=== PATIENT | female | born 1965 | race Caucasian/White ===

== ENCOUNTER 2019-10-10 10:44 | Emergency (ER) | payer OTHER ==
--- OUTSIDE RECORDS SUMMARY | 2019-10-10 10:51 | XMS REPORT | Continuity of Care Document ---
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, face and Anna Givens MD Onset: 05/2020 neck Psoriasis Anna Givens MD Onset: 09/15/2019 Immunologic Anna Givens MD Onset: 09/15/2019 Other synovitis and tenosynovitis, left ankle and Sebastián Navarro MD Onset: foot Tailor's bunion Sebastián Navarro MD Onset: 04/11/2019 Onychomycosis of toenails Onset: 06/23/2019 Hypothyroidism Onset: 08/06/1989 H/O: hysterectomy Onset: 08/06/2008 Stress fracture of metatarsal bone Onset: 03/14/2019 Menopausal syndrome Onset: 04/22/2019 Exercise-induced asthma Onset: 04/22/2019 Raynaud's phenomenon Onset: 06/23/2019 Social History Type Date Description Comments Sex Unknown Tobacco Use Start: Unknown End: Former Cigarette Smoker Unknown Smoking Status Reviewed: 09/18/19 Former Cigarette Smoker ETOH Use Occasionally consumes alcohol ETOH Use Drinks 2 Alcoholic Beverages Per Week Tobacco Use Start: Unknown Patient has never smoked Exercise Type/Frequency Exercises regularly Crossfit Allergies, Adverse Reactions, Alerts Description No Known Drug Allergies Medications Active Medications SIG Qnty Indications Ordering Date Provider Prednisone Take three tabs 60tabs M06.4 Ezequiel 09/18/2019 5mg Tablets by mouth daily MD Germain for three days, two tabs by mouth daily for two ,weeks one tab by mouth daily for two weeks. Hydroxychloroquine take one tab by 180tabs M06.4 Ezequiel 09/18/2019 Sulfate mouth daily for MD Germain 200mg Tablets one week, then increase to one tab twice daily thereafter Nifedipine 5%, apply 0.5 to 1 90ml I73.00 Anna Givens, 09/15/2019 Pentoxifylline 5% In ml to hands q 8 Cream hours Estradiol Take One Tablet Unknown 1mg Tablets By Mouth Every Day Levothyroxine Sodium 1 by mouth every Unknown 125mcg day Tablets Jublia apply once daily Unknown 10% Solution to toe nails Claritin 1 by mouth every Unknown 10mg Capsules day prn Medications Administered in Office Medication SIG Qnty Indications Ordering Provider Date Triamcinolone (Kenalog) Sebastián Navarro MD 04/11/2019 Injection Immunizations CPT Code Status Date Vaccine Lot # [id number] Given 05/29/2017 Influenza Virus Vaccine, Quadrivalent, Split, Im Use 6-35mo 07725 Given 08/31/2016 Influenza Virus Vaccine, Quadrivalent, Split, Im Use 6-35mo 18807 Given 08/26/2014 Tdap - Tetanus/Diptheria/Acellular Pertussis Vital Signs Date Vital Result Comment 09/18/2019 4:03pm Height 68.75 inches 5'8.75" Weight 177.38 lb Heart Rate 54 /min BP Systolic 113 mmHg BP Diastolic 68 mmHg Body Temperature 96.9 F O2 % BldC Oximetry 98 % BMI (Body Mass Index) 26.4 kg/m2 09/15/2019 3:31pm Height 68.75 inches 5'8.75" Weight 175.12 lb Heart Rate 59 /min BP Systolic 117 mmHg BP Diastolic 70 mmHg Body Temperature 97.6 F O2 % BldC Oximetry 100 % BMI (Body Mass Index) 26.0 kg/m2 Results Test Acquired Date Facility Test Result H/L Range Note CBC Auto 08/27/2019 [facility] White Blood 6.1 10^3/uL Normal 3.5-10.[address] [place] [address] [phone] Red Blood Count 3.89 10^6/uL Normal 3.70-4.87 Hemoglobin 12.2 g/dL Normal 12.0-16.0 Hematocrit 36 % Normal 35-47 Mean Corpuscular Volume 91 fL Normal 80-97 Mean Corpuscular Hemoglobin 31 pg Normal 27-31 Mean Corpuscular HGB Conc 34 g/dL Normal 31-36 Red Cell Distribution Width 13 % Normal 10-15 Platelet Count 229 10^3/uL Normal 150-450 Mean Platelet Volume 9.3 fL Normal 7.4-10.4 Abs Neutrophils 2.8 10^3/uL Normal 1.5-7.7 Abs Lymphocytes 2.4 10^3/uL Normal 1.0-4.8 Abs Monocytes 0.7 10^3/uL Normal 0-0.8 Abs Eosinophils 0.1 10^3/uL Normal 0-0.6 Abs Basophils 0.0 10^3/uL Normal 0-0.2 Abs Nucleated RBC 0.0 10^3/uL Granulocyte % 46.7 % Lymphocyte % 40.1 % Monocyte % 11.7 % Eosinophil % 0.8 % Basophil % 0.7 % Nucleated Red Blood Cells % 0.0 Urine Culture And 08/12/2019 [facility] Urine Culture SEE RESULT [address] [place] [address] [phone] Ssa/SSB Abs Igg 08/12/2019 [facility] SS-A/Ro <0.2 U [address] [place] [address] [phone] SS-B/La Antibody <0.2 U 3 Maryanne Igg AB Reflex 08/12/2019 [facility] SS-A/Ro Antibody <0.2 U [address] [place] [address] [phone] SS-B/La Antibody <0.2 U 5 Sm (Cavazos) IgG Antibody 0.4 U 6 LUNCHROOM ATTENDANT Antibody, IgG 3.8 U Abnormal 7 Scl-70 (Scleroderma) Antibody <0.2 U 8 Khushboo-1 Antibody <0.2 U 9 Laboratory test 08/12/2019 [facility] Rheumatoid < 10 IU/mL Normal <[address] [place] [address] [phone] Lupus 08/12/2019 [facility] Lupus See [address] [place] [address] Tech Inter [phone] Prothrombin Time(Lac) 11.0 sec 9.4 - 12.5 Lac Inr 1.0 0.9-1.1 11 Lac Aptt 24 sec Abnormal 25 - 37 DRVVT Screen Ratio 0.88 ratio <1.20 12 Laboratory 08/12/2019 [facility] Hepatitis B Nonreactive Nonreactive test finding 101 [facility] [place] [place] [address] [phone] Urinalysis 08/12/2019 [facility] Urine Color Yellow Profile [facility] [place] [address] [phone] Urine Appearance Cloudy Urine Specific Zeigler 1.008 Low 1.010-1.030 Urine pH 6.0 Normal 5-9 Urine Urobilinogen Negative Negative Urine Ketones Negative Negative Urine Protein Negative Negative Urine Leukocytes Negative Negative Urine Blood 1+ Abnormal Negative Urine Nitrite Negative Negative Urine Bilirubin Negative Negative Urine Glucose Negative Negative Urine White Blood Cell Trace(0-5/hpf) Absent Urine Red Blood Cell Trace(0-2/hpf) Absent Urine Bacteria 2+ Abnormal Absent Urine Squamous Epithelial Cell Present Abnormal Absent Laboratory test 08/12/2019 [facility] Complement C1Q 23 mg/dL Abnormal 12 - 13 finding [facility] [address] [place] [address] [phone] Complement C3 105 mg/dL 75 - 175 14 Complement C4 17 mg/dL 14 - 40 15 Cyclic Citrullinated Pep Igg <15.6 U 16 Direct Poonam NEGATIVE Rna Polymerase III Igg <10.0 U 17 Erythrocyte Sed Rate 29 mm/Hr Normal 0-29 Cardiolipin 08/12/2019 [facility] Phospholipid Ab 11.9 MPL 18 Igg/Igm [facility] IgM, [place] [address] [phone] Phospholipid Ab IgG < 9.4 GPL 19 Laboratory test 08/12/2019 [facility] C Reactive 24.26 mg/L High <8.01 finding 101 [facility] [place] [address] [phone] Creatine Kinase(CK) 29 U/L Normal 10-223 Comp Metabolic 08/12/2019 [facility] Sodium 138 mmol/L Normal 135-[address] [place] [address] [phone] Potassium 3.5 mmol/L Normal 3.5-5.0 Chloride 103 mmol/L Normal 101-111 Co2 Carbon Dioxide 28 mmol/L Normal 22-32 Anion Gap 7 mmol/L Normal 2-11 Glucose 93 mg/dL Normal 70-100 Blood Urea Nitrogen 9 mg/dL Normal 6-24 Creatinine 0.73 mg/dL Normal 0.51-0.95 BUN/Creatinine Ratio 12.3 Normal 8-20 Calcium 9.2 mg/dL Normal 8.6-10.3 Total Protein 6.7 g/dL Normal 6.4-8.9 Albumin 4.2 g/dL Normal 3.2-5.2 Globulin 2.5 g/dL Normal 2-4 Albumin/Globulin Ratio 1.7 Normal 1-3 Total Bilirubin 0.50 mg/dL Normal 0.2-1.0 Alkaline Phosphatase 60 U/L Normal 34-104 Alt 16 U/L Normal 7-52 Ast 17 U/L Normal 13-39 Egfr Non- 82.8 >60 Egfr 100.2 >60 20 CBC Auto 08/12/2019 [facility] White Blood 7.2 10^3/uL Normal 3.5-10.[address] Count [place], [place] [address] [phone] Red Blood Count 3.84 10^6/uL Normal 3.70-4.87 Hemoglobin 12.0 g/dL Normal 12.0-16.0 Hematocrit 35 % Normal 35-47 Mean Corpuscular Volume 91 fL Normal 80-97 Mean Corpuscular Hemoglobin 31 pg Normal 27-31 Mean Corpuscular HGB Conc 34 g/dL Normal 31-36 Red Cell Distribution Width 14 % Normal 10-15 Platelet Count 213 10^3/uL Normal 150-450 Mean Platelet Volume 9.8 fL Normal 7.4-10.4 Abs Neutrophils 5.2 10^3/uL Normal 1.5-7.7 Abs Lymphocytes 1.4 10^3/uL Normal 1.0-4.8 Abs Monocytes 0.6 10^3/uL Normal 0-0.8 Abs Eosinophils 0.0 10^3/uL Normal 0-0.6 Abs Basophils 0.0 10^3/uL Normal 0-0.2 Abs Nucleated RBC 0.0 10^3/uL Granulocyte % 71.8 % Lymphocyte % 19.0 % Monocyte % 8.1 % Eosinophil % 0.5 % Basophil % 0.6 % Nucleated Red Blood Cells % 0.0 Laboratory test 08/12/2019 [facility] C1 Esterase 25 mg/dL 19 - 37 [address] [place] [place] [address] [phone] C1 Esterase Inhibitor Function TNP () 22 Beta 2 Glycoprotein 08/12/2019 [facility] Beta 2 <9.4 U/mL 23 I Abs [address] [place] [address] [phone] Beta 2 Glycoprotein IgM <9.4 U/mL 24 Nuclear AB 08/12/2019 [facility] Nuclear Ab Positive >= Abnormal 25 (Ginger) By Ifa [address] (Ginger) by Ifa, 1:25 <[place] [address] IgG NOTE> [phone] Ginger Titer: >=1:2560 Ginger Pattern: Speckled 26 Protein 06/27/2019 N2N/CCD Import total protein(pep) 6.9 g/dL 6.3 - 7.9 electrophoresis panel - Serum or Plasma albumin 3.5 g/dL 3.4-4.7 alpha-1 globulin 0.3 g/dL 0.1-0.3 alpha-2 globulin 0.9 g/dL 0.6-1.0 beta globulin 0.9 g/dL 0.7-1.2 gamma globulin 1.4 g/dL 0.6-1.6 albumin/globulin ratio 1.02 impression see comment Nuclear Ab 06/26/2019 N2N/CCD Import anti nuclear 8.6 U Abnormal [Presence] in Serum antibody rubeola (measles) 06/26/2019 N2N/CCD Import rubeola (measles) positive IgG antibody IgG antibody rubeola IgG antibody index 3.1 TSH (thyroid 06/25/2019 N2N/CCD Import TSH (thyroid 0.36 mciu/mL 0.34- 5.60 stimulating horm) stimulating horm) Basic metabolic 06/25/2019 N2N/CCD Import sodium 138 mmol/L 135-145 panel - Blood potassium 3.9 mmol/L 3.5-5.0 chloride 105 mmol/L 101-111 Co2 carbon dioxide 28 mmol/L 22-32 anion gap 5 mmol/L 2-11 glucose 91 mg/dL 70-100 blood urea nitrogen 15 mg/dL 6-24 creatinine 0.74 mg/dL 0.51-0.95 BUN/creatinine ratio 20.3 High 8-20 calcium 9.7 mg/dL 8.6-10.3 eGFR non- 81.5 >60 eGFR 98.6 >60 CBC W Auto 06/25/2019 N2N/CCD Import white blood 5.6 10_3/uL 3.5-10.8 Differential panel - count Blood red blood count 4.27 10_6_/uL 3.70-4.87 hemoglobin 13.2 g/dL 12.0-16.0 hematocrit 39 % 35-47 mean corpuscular volume 90 fL 80-97 mean corpuscular hemoglobin 31 pg 27-31 mean corpuscular HGB conc 34 g/dL 31-36 red cell distribution width 14 % 10-15 platelet count 212 10_3/uL 150-450 mean platelet volume 9.7 fL 7.4-10.4 abs neutrophils 3.8 10_3/uL 1.5-7.7 abs lymphocytes 1.2 10_3/uL 1.0-4.8 abs monocytes 0.5 10_3/uL 0-0.8 abs eosinophils 0.1 10_3/uL 0-0.6 abs basophils 0.0 10_3/uL 0-0.2 abs nucleated RBC 0.0 10_3/uL granulocyte % 67.5 % lymphocyte % 21.8 % monocyte % 8.9 % eosinophil % 1.1 % basophil % 0.7 % nucleated red blood cells % 0.1 1 SEE RESULT BELOW Name: SURYA ALLISON : [address]: Ezequiel Groves MD Acct: [id number] Unit: [id number] AGE: 53 Location: LAB Re08/12/19 SEX: F Status: REG REF SPEC: [id number] KARLA: 08/12/19-[address]: Ezequiel Groves MD REQ: [id number] RECD: 08/12/19 STATUS: COMP _ SOURCE: URINE SPDESC: ORDERED: Urine Culture Procedure Result Reported Site Urine Culture Final 08/13/19- 1444 ML No growth of clinically significant organisms * ML - Main Lab . END OF REPORT DEPARTMENT OF PATHOLOGY, [address] [place] [address] Altaf Juarez M.D. Director [facility] # [id number] 2 REFERENCE VALUE <1.0 (Negative) 3 REFERENCE VALUE <1.0 (Negative) Test Performed by: [address] [address] Lumber Inspector: Tay Daniels M.D. Ph.D.; CLIA# [id number] 4 REFERENCE VALUE <1.0 (Negative) 5 REFERENCE VALUE <1.0 (Negative) 6 REFERENCE VALUE <1.0 (Negative) 7 Interpretation: Positive (>=1.0) REFERENCE VALUE <1.0 (Negative) 8 REFERENCE VALUE <1.0 (Negative) 9 REFERENCE VALUE <1.0 (Negative) Test Performed by: [facility] - [address] [address] Lumber Inspector: Tay Daniels M.D. Ph.D.; CLIA# [id number] 10 No evidence of a lupus anticoagulant based on results of Prothrombin Time (PT), Activated Partial Thromboplastin Time (APTT), and Dilute Russells Viper Venom Time (DRVVT). Interpretation not reviewed by physician. 11 ADDITIONAL INFORMATION Standard intensity warfarin therapeutic range: 2.0 to 3.0 High intensity warfarin therapeutic range: 2.5 to 3.5 12 Test Performed by: [place] [id number] Lumber Inspector: Tay Daniels M.D. Ph.D.; CLIA# [id number] 13 ADDITIONAL INFORMATION This test was developed and its performance characteristics determined by [facility] in a manner consistent with CLIA requirements. This test has not been cleared or approved by the U.S. Food and Drug Administration. Test Performed by: [place] [address] Lumber Inspector: Tay Daniels M.D. Ph.D.; CLIA# [id number] 14 Test Performed by: [place] [address] Lumber Inspector: Tay Daniels M.D. Ph.D.; CLIA# [id number] 15 Test Performed by: [place] [address] Lumber Inspector: Tay Daniels M.D. Ph.D.; CLIA# [id number] 16 REFERENCE VALUE <20.0 (Negative) Test Performed by: [place] [address] Lumber Inspector: Tay Daniels M.D. Ph.D.; CLIA# [id number] 17 REFERENCE VALUE <20.0 (Negative) Test Performed by: [place] [address] Lumber Inspector: Tay Daniels M.D. Ph.D.; CLIA# [id number] 18 REFERENCE VALUE <15.0 (Negative) 19 REFERENCE VALUE <15.0 (Negative) Test Performed by: [place] [address] Lumber Inspector: Tay Daniels M.D. Ph.D.; CLIA# [id number] 20 Because ethnic data is not always readily available, this report includes an eGFR for both -Americans and non- Americans. The National Kidney Disease Education Program (NKDEP) does not endorse the use of the MDRD equation for patients that are not between the ages of 18 and 70, are , have extremes of body size, muscle mass, or nutritional status, or are non- or non-. According to the National Kidney Foundation, irrespective of diagnosis, the stage of the disease is based on the level of kidney function: Stage Description GFR(mL/min/1.73 m(2)) 1 Kidney damage with normal or decreased GFR 90 2 Kidney damage with mild decrease in GFR 60-89 3 Moderate decrease in GFR 30-59 4 Severe decrease in GFR 15-29 5 Kidney failure <15 (or dialysis) 21 Test Performed by: [place] [address] Lumber Inspector: Tay Daniels M.D. Ph.D.; CLIA# [id number] 22 C1 Esterase Inhib, Functional was cancelled on 08/14/2019 at 10:44; Specimen received refrigerated - must be sent frozen on dry ice. Test Performed by: [place] [address] Lumber Inspector: Tay Daniels M.D. Ph.D.; CLIA# [id number] 23 REFERENCE VALUE <15.0 (Negative) 24 REFERENCE VALUE <15.0 (Negative) Test Performed by: [facility] [place] [address] Lumber Inspector: Tay Daniels M.D. Ph.D.; CLIA# [id number] 25 Positive >= 1:2560 REFERENCE VALUE <1:80 (Negative) 26 Test Performed by: [facility] [place] [address] Lumber Inspector: Tay Daniels M.D. Ph.D.; CLIA# [id number] Procedures Date Code Description Status 09/09/2019 35585 Diffusing Capacity Completed 09/09/2019 15594 Plethysmography Determination Lung Volumes & Per Airway Completed Resist 09/09/2019 62618 Pulmonary Function><Bronchodil Completed 09/01/2019 69082 ECHO Transthoracic, Real-Time 2D With Doppler And Color Completed Flow 09/01/2019 56546 ECHO Transthoracic, Real-Time 2D With Doppler And Color Completed Flow 04/11/2019 77452 Inj/Aspir, Small Joint/Bursa W/ US Completed 08/23/2018 26565872 Mammogram Completed 08/06/2013 29383922 Colonoscopy Completed Medical Devices Description No Information Available Encounters Type Date Location Provider Dx Diagnosis Office Visit 08/12/2019 Rheumatology Ezequiel Groevs, R76.0 Raised antibody 2:[facility] - titer Ccmob I73.00 Raynaud's syndrome without gangrene Office Visit 07/17/2019 9:10a [facility] Dermatology Maurice Sexton, L82.1 Other seborrheic MD keratosis L81.4 Other melanin hyperpigmentation I78.1 Nevus, non-neoplastic Office Visit 04/11/2019 [facility], M21.622 Bunionette of 10:00a Orthopedics at left foot [place] M65.872 Other synovitis and tenosynovitis, left ankle and foot Assessments Date Code Description Provider 09/18/2019 M06.4 Inflammatory polyarthropathy Ezequiel Groves MD 09/18/2019 I73.00 Raynaud's syndrome without gangrene Ezequiel Groves MD 09/15/2019 I73.00 Raynaud's syndrome without gangrene Anna Givens MD 09/15/2019 R76.0 Raised antibody titer Anna Givens MD 09/15/2019 L40.0 Psoriasis Anna Givens MD 09/15/2019 C85.11 Nodular lymphoma of lymph nodes of Anna Givens MD head, face and neck 09/15/2019 R20.0 Numbness of upper limb Anna Givens MD 09/15/2019 Z00.00 Adult health examination Anna Givens MD 09/09/2019 R89.8 Other abnormal findings in specimens Radha Mae MD from other organs, systems and tissues 09/01/2019 R76.0 Raised antibody titer Kamille Irving M.D. 09/01/2019 R76.0 Raised antibody titer [place] [facility] Schedule 09/01/2019 I73.00 Raynaud's syndrome without gangrene Kamille Irving M.D. 09/01/2019 I73.00 Raynaud's syndrome without gangrene [facility] Schedule 09/01/2019 I35.1 Nonrheumatic aortic (valve) Kamille Irving M.D. insufficiency 09/01/2019 I35.1 Nonrheumatic aortic (valve) [facility] Schedule insufficiency 08/12/2019 R76.0 Raised antibody titer Ezequiel Groves MD 08/12/2019 I73.00 Raynaud's syndrome without gangrene Ezequiel Groves MD 07/17/2019 L82.1 Other seborrheic keratosis Maurice Sexton MD 07/17/2019 L81.4 Other melanin hyperpigmentation Maurice eSxton MD 07/17/2019 I78.1 Nevus, non-neoplastic Maurice Sexton MD 04/11/2019 M21.622 Bunionette of left foot Sebastián Navarro MD 04/11/2019 M65.872 Other synovitis and tenosynovitis, Sebastián Navarro MD left ankle and foot Plan of Treatment Future Appointment(s):11/19/2019 4:00 pm - Anna Givens MD at [facility]10/22/2019 4:00 pm - Ezequiel Groves MD at [facility]09/18/2019 - Ezequiel Groves, MDM06.4 Inflammatory polyarthropathyNew Medication:Prednisone 5 mg - Take three tabs by mouth daily for three days, two tabs by mouth daily for two ,weeks one tab by mouth daily for two weeks.Hydroxychloroquine Sulfate 200 mg - take one tab by mouth daily for one week, then increase to one tab twice daily thereafterFollow up: scheduled appointment should be kept as ISI73.00 Raynaud's syndrome without gangrene Functional Status Description No Information Available Mental Status Description No Information Available Referrals Description No Information Available
--- OUTSIDE RECORDS SUMMARY | 2019-10-10 10:51 | XMS REPORT | Continuity of Care Document ---
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 Diabetes & Metabolism Problems Active Problems Provider Date Other synovitis and tenosynovitis, left ankle and Sebastián Navarro MD Onset: foot Tailor's bunion Sebastián Navarro MD Onset: 04/11/2019 Onychomycosis of toenails Onset: 06/23/2019 Hypothyroidism Onset: 08/06/1989 H/O: hysterectomy Onset: 08/06/2008 Stress fracture of metatarsal bone Onset: 03/14/2019 Menopausal syndrome Onset: 04/22/2019 Exercise-induced asthma Onset: 04/22/2019 Raynaud's phenomenon Onset: 06/23/2019 Social History Type Date Description Comments Sex Unknown ETOH Use Occasionally consumes alcohol Tobacco Use Start: Unknown Patient has never smoked Smoking Status Reviewed: 08/12/19 Patient has never smoked Exercise Type/Frequency Exercises regularly Allergies, Adverse Reactions, Alerts Description No Known Drug Allergies Medications Active Medications SIG Qnty Indications Ordering Provider Date Estradiol Take One Tablet Unknown 1mg Tablets By Mouth Every Day Levothyroxine Sodium 1 by mouth every Unknown 125mcg day Tablets Medications Administered in Office Medication SIG Qnty Indications Ordering Provider Date Triamcinolone (Kenalog) Sebastián Navarro MD 04/11/2019 Injection Immunizations CPT Code Status Date Vaccine Lot # [id number] Given 05/29/2017 Influenza Virus Vaccine, Quadrivalent, Split, Im Use 6-35mo [address]109 Given 08/31/2016 Influenza Virus Vaccine, Quadrivalent, Split, Im Use 6-35mo 09544 Given 08/26/2014 Tdap - Tetanus/Diptheria/Acellular Pertussis Vital Signs Date Vital Result Comment 08/12/2019 2:01pm Height 68.75 inches 5'8.75" Weight 178.00 lb Heart Rate 47 /min BP Systolic 114 mmHg BP Diastolic 60 mmHg Body Temperature 97.1 F Pain Level 0 O2 % BldC Oximetry 95 % BMI (Body Mass Index) 26.5 kg/m2 07/10/2019 12:00am Height 68.75 inches Weight 179.00 lb BP Systolic 109 mmHg BP Diastolic 70 mmHg BMI (Body Mass Index) 26.6 kg/m2 Results Test Acquired Date Facility Test Result H/L Range Note Protein 06/27/2019 N2N/CCD Import total 6.9 g/dL 6.3 - 7.9 electrophoresis panel protein(pe - Serum or Plasma p) albumin 3.5 g/dL 3.4-4.7 alpha-1 globulin 0.3 [...] % nucleated red blood cells % 0.1 Procedures Date Code Description Status 04/11/2019 91938 Inj/Aspir, Small Joint/Bursa W/ US Completed Medical Devices Description No Information Available Encounters Type Date Location Provider Dx Diagnosis Office Visit 07/17/2019 [facility] Dermatology Maurice Sexton MD L82.1 Other seborrheic 9:10a keratosis L81.4 Other melanin hyperpigmentation I78.1 Nevus, non-neoplastic Office Visit 04/11/2019 [facility], M21.622 Bunionette of 10:00a Orthopedics at left foot [place] M65.872 Other synovitis and tenosynovitis, left ankle and foot Assessments Date Code Description Provider 08/12/2019 R76.0 Raised antibody titer Ezequiel Groves MD 08/12/2019 I73.00 Raynaud's syndrome without gangrene Ezequiel Groves MD 07/17/2019 L82.1 Other seborrheic keratosis Maurice Sexton MD 07/17/2019 L81.4 Other melanin hyperpigmentation Maurice Sexton MD 07/17/2019 I78.1 Nevus, non-neoplastic Maurice Sexton MD 04/11/2019 M21.622 Bunionette of left foot Sebastián Navarro MD 04/11/2019 M65.872 Other synovitis and tenosynovitis, left ankle Sebastián Navarro MD and foot Plan of Treatment Future Appointment(s):10/22/2019 4:00 pm - Ezequiel Groves MD at [facility]08/12/2019 - Ezequiel Groves, MDR76.0 Raised antibody titerNew Orders:Echocardiogram, Ordered: 08/12/19PFTW/Spirometry Vol Pre/Post Bronchdilat Dlco Complete, Ordered: 08/12/19Follow up:2-3 chfaopM40.00 Raynaud' s syndrome without gangreneComments:Thermo gloveshttps://www.the- liability claims examiner.org/article/mvfyyd-wxctrx-cncxziw-arajpv-jbzb-txvl-dysfunction- cefyddh-adaousmh-cpwpklhtg/ Functional Status Description No Information Available Mental Status Description No Information Available Referrals Description No Information Available
--- OUTSIDE RECORDS SUMMARY | 2019-10-10 10:51 | XMS REPORT | Continuity of Care Document ---
:1965 External Reference #:[id number] Author Name Anna Givens MD (transmitted by agent of provider Lisa Cota) Address [address] [facility], [place] [address] Problems Active Problems Provider Date Numbness of [...] Former Cigarette Smoker Unknown Smoking Status Reviewed: 08/12/19 Former Cigarette Smoker ETOH Use Occasionally consumes [...] CPT Code Status Date Vaccine Lot # 73083 Given 05/29/2017 Influenza Virus Vaccine, Quadrivalent, Split, Im Use 6-35mo 64276 Given 08/31/2016 Influenza Virus Vaccine, Quadrivalent, Split, Im Use 6-35mo 39261 Given 08/26/2014 Tdap - Tetanus/Diptheria/Acellular Pertussis Vital Signs Date Vital Result Comment 09/15/2019 3:31pm Height 68.75 inches 5'8.75" Weight 175.12 lb Heart Rate 59 /min BP Systolic 117 mmHg BP Diastolic 70 mmHg Body Temperature 97.6 F O2 % BldC Oximetry 100 % BMI (Body Mass Index) 26.0 kg/m2 08/12/2019 2:01pm Height 68.75 inches 5'8.75" Weight 178.00 lb Heart Rate 47 /min BP Systolic 114 mmHg BP Diastolic 60 mmHg Body Temperature 97.1 F Pain Level 0 O2 % BldC Oximetry 95 % BMI (Body Mass Index) 26.5 kg/m2 Results Test Acquired Date Facility Test Result H/L Range Note CBC Auto 08/27/2019 [facility] White Blood 6.1 10^3/uL Normal 3.5-10.[address] [place] [address] [phone] Red Blood Count 3.89 10^6/uL Normal 3.70-4.87 [...] Cells % 0.0 Urine Culture And 08/12/2019 [facility] Urine Culture SEE RESULT [address] [place] [address] [phone] Ssa/SSB Abs Igg 08/12/2019 [facility] SS-A/Ro <0.[address] [place] [address] [phone] SS-B/La Antibody <0.2 U 3 Maryanne Igg AB Reflex 08/12/2019 [facility] SS-A/Ro Antibody <0.[address] [place] [address] [phone] SS-B/La Antibody <0.2 U 5 Sm (Cavazos) IgG Antibody 0.4 U 6 TRANSFER AND PUMPHOUSE OPERATOR Antibody, IgG 3.8 U Abnormal 7 Scl-70 (Scleroderma) Antibody <0.2 U 8 Khushboo-1 Antibody <0.2 U 9 Laboratory test 08/12/2019 [facility] Rheumatoid < 10 IU/mL Normal <[address] [place] [address] [phone] Lupus 08/12/2019 [facility] Lupus See [address] [place] [address] Tech Inter [phone] Prothrombin Time(Lac) 11.0 sec 9.4 - 12.5 Lac Inr 1.0 0.9-1.1 11 Lac Aptt 24 sec Abnormal 25 - 37 DRVVT Screen Ratio 0.88 ratio <1.20 12 Laboratory 08/12/2019 [facility] Hepatitis B Nonreactive Nonreactive test finding [address] [place] [place] [address] [phone] Urinalysis 08/12/2019 [facility] Urine Color Yellow Profile [address] [place] [address] [phone] Urine Appearance Cloudy Urine Specific [place] 1.008 Low 1.010-1.030 Urine pH 6.0 Normal [...] Cell Present Abnormal Absent Laboratory test 08/12/2019 [facility] Complement C1Q 23 mg/dL Abnormal 12 - [address] 22 [place] [address] [phone] Complement C3 105 mg/dL 75 - 175 14 Complement C4 17 mg/dL 14 - 40 15 Cyclic Citrullinated Pep Igg <15.6 U 16 Direct Poonam NEGATIVE Rna Polymerase III Igg <10.0 U 17 Erythrocyte Sed Rate 29 mm/Hr Normal 0-29 Cardiolipin 08/12/2019 [facility] Phospholipid Ab 11.9 MPL 18 Igg/Igm [address] IgM, [place] [address] [phone] Phospholipid Ab IgG < 9.4 GPL 19 Laboratory test 08/12/2019 [facility] C Reactive 24.26 mg/L High <8.[address] [place] [address] [phone] Creatine Kinase(CK) 29 U/L Normal 10-223 Comp Metabolic 08/12/2019 [facility] Sodium 138 mmol/L Normal 135-[address] [place] [address] [phone] Potassium 3.5 mmol/L Normal 3.5-5.0 Chloride 103 [...] Egfr 100.2 >60 20 CBC Auto 08/12/2019 [facility] White Blood 7.2 10^3/uL Normal 3.5-10.[address] [place] [address] [phone] Red Blood Count 3.84 10^6/uL Normal 3.70-4.87 [...] Blood Cells % 0.0 Laboratory test 08/12/2019 [facility] C1 Esterase 25 mg/dL 19 - 37 [address] [place] [address] [phone] C1 Esterase Inhibitor Function TNP () 22 Beta 2 Glycoprotein 08/12/2019 [facility] Beta 2 <9.4 U/mL 23 I Abs [address] [place] [address] [phone] Beta 2 Glycoprotein IgM <9.4 U/mL 24 Nuclear AB 08/12/2019 [facility] Nuclear Ab Positive >= Abnormal 25 (Ginger) By Ifa [address] (Ginger) by Ifa, 1:25 <[place] [address] IgG NOTE> [phone] Ginger Titer: >=1:2560 Ginger Pattern: Speckled 26 [...] [address]: Ezequiel Groves MD Acct: [id number] Unit: [id number] AGE: 53 Location: LAB Re08/12/19 SEX: F Status: REG REF SPEC: [id number] KARLA: 08/12/19-[address]: Ezequiel Groves MD REQ: [id number] RECD: 08/12/19 STATUS: COMP _ SOURCE: URINE SPDESC: ORDERED: Urine Culture Procedure Result Reported Site Urine Culture Final 08/13/19- 1444 ML No growth of clinically significant organisms * ML - [facility] . END OF REPORT DEPARTMENT OF PATHOLOGY, [address] [place] [address] Altaf Juarez M.D. Director SOWMYA # [id number] 2 REFERENCE VALUE <1.0 (Negative) 3 REFERENCE VALUE <1.0 (Negative) Test Performed by: [facility] - [address] [address] [employer] Investigator: Tay Daniels M.D. Ph.D.; [place]# [id number] 4 REFERENCE VALUE <1.0 (Negative) 5 REFERENCE VALUE <1.0 (Negative) 6 REFERENCE VALUE <1.0 (Negative) 7 Interpretation: Positive (>=1.0) REFERENCE VALUE <1.0 (Negative) 8 REFERENCE VALUE <1.0 (Negative) 9 REFERENCE VALUE <1.0 (Negative) Test Performed by: [facility] - [facility] [address] [place] [address] Wage And [employer] Investigator: Tay Daniels M.D. Ph.D.; CLIA# [id number] 10 No evidence of a lupus anticoagulant based on results of Prothrombin Time (PT), Activated Partial Thromboplastin Time (APTT), and Dilute Russells Viper Venom Time (DRVVT). Interpretation not reviewed by physician. 11 ADDITIONAL INFORMATION Standard intensity warfarin therapeutic range: 2.0 to 3.0 High intensity warfarin therapeutic range: 2.5 to 3.5 12 Test Performed by: [facility] - [address] [address] [employer] Investigator: Tay Daniels M.D. Ph.D.; CLIA# [id number] 13 ADDITIONAL INFORMATION This test was developed and its performance characteristics determined by [facility] in a manner consistent with CLIA requirements. This test has not been cleared or approved by the U.S. Food and Drug Administration. Test Performed by: [place] [address] [employer] And [employer] Investigator: Tay Daniels M.D. Ph.D.; CLIA# [id number] 14 Test Performed by: [place] [address] [employer] Investigator: Tay Daniels M.D. Ph.D.; CLIA# [id number] 15 Test Performed by: [place] [address] [employer] Investigator: Tay Daniels M.D. Ph.D.; CLIA# [id number] 16 REFERENCE VALUE <20.0 (Negative) Test Performed by: [place] [address] [employer] Investigator: Tay Daniels M.D. Ph.D.; CLIA# [id number] 17 REFERENCE VALUE <20.0 (Negative) Test Performed by: [place] [address] [employer] Investigator: Tay Daniels M.D. Ph.D.; CLIA# [id number] 18 REFERENCE VALUE <15.0 (Negative) 19 REFERENCE VALUE <15.0 (Negative) Test Performed by: [address] [place] [address] [employer] Investigator: Tay Daniels M.D. Ph.D.; CLIA# [id number] 20 Because ethnic data is not always [...] <15 (or dialysis) 21 Test Performed by: [place] [address] [employer] And [employer] Investigator: Tay Daniels M.D. Ph.D.; CLIA# [id number] 22 C1 Esterase Inhib, Functional was cancelled on 08/14/2019 at 10:44; Specimen received refrigerated - must be sent frozen on dry ice. Test Performed by: [place] [address] [employer] And [employer] Investigator: Tay Daniels M.D. Ph.D.; CLIA# [id number] 23 REFERENCE VALUE <15.0 (Negative) 24 REFERENCE VALUE <15.0 (Negative) Test Performed by: [place] [address] [employer] And [employer] Investigator: Tay Daniels M.D. Ph.D.; CLIA# [id number] 25 Positive >= 1:2560 REFERENCE VALUE <1:80 (Negative) 26 Test Performed by: [facility] - [facility] [address] [facility], [place] [address] Wage And Hour Investigator: Tay Daniels M.D. Ph.D.; CLIA# [id number] Procedures Date Code Description Status 09/09/2019 66960 Diffusing Capacity Completed 09/09/2019 93312 Plethysmography Determination Lung Volumes & Per Airway Completed Resist 09/09/2019 43620 Pulmonary Function><Bronchodil Completed 09/01/2019 31334 ECHO Transthoracic, Real-Time 2D With Doppler And Color Completed Flow 09/01/2019 32923 ECHO Transthoracic, Real-Time 2D With Doppler And Color Completed Flow 04/11/2019 76305 Inj/Aspir, Small Joint/Bursa W/ US Completed 08/23/2018 21309580 Mammogram Completed 08/06/2013 90311130 Colonoscopy Completed Medical Devices Description No Information Available Encounters Type Date Location Provider Dx Diagnosis Office Visit 08/12/2019 Rheumatology Ezequiel Groves, R76.0 Raised antibody 2:00p [facility] - titer Ccmob I73.00 Raynaud's syndrome without gangrene Office Visit 07/17/2019 9:10a [facility] Dermatology Maurice Rutledgezer, L82.1 Other seborrheic keratosis L81.4 Other melanin hyperpigmentation I78.1 Nevus, non-neoplastic Office Visit 04/11/2019 [facility] Ramon, M21.622 Bunionette of 10:00a Orthopedics at left foot [place] M65.872 Other synovitis and tenosynovitis, left ankle and foot Assessments Date Code Description Provider 09/15/2019 I73.00 Raynaud's syndrome without gangrene Anna [...] MD 04/11/2019 M21.622 Bunionette of left foot Sebasitán Navarro MD 04/11/2019 M65.872 Other synovitis and tenosynovitis, Sebastián Navarro MD left ankle and foot Plan of Treatment Future Appointment(s):11/19/2019 4:00 pm - Anna Givens MD at [facility]10/22/2019 4:00 pm - Ezequiel Groves MD at [facility] - [facility]09/15/2019 - Anna Givens MDI73.00 Raynaud's syndrome without gangreneFollow up:2 CPER76.0 Raised antibody bzstyG06.0 UounlpftzE23.11 Nodular lymphoma of lymph nodes of head, face and neckR20.0 Numbness of upper limbZ00.00 Adult health examination Functional Status Description No Information Available Mental Status Description No Information Available Referrals Description No Information Available
--- OUTSIDE RECORDS SUMMARY | 2019-10-10 10:51 | XMS REPORT | Continuity of Care Document ---
:1965 External Reference #:[id number] Author Name Anna Givens MD (transmitted by agent of provider Lisa Cota) Address [address] [facility], [place] [address] Problems Active Problems Provider Date Numbness of [...] Start: Unknown End: Former Cigarette Smoker Unknown ETOH Use Occasionally consumes alcohol ETOH Use Drinks 2 Alcoholic Beverages Per Week Tobacco Use Start: Unknown End: Patient is a former 1 year while in Unknown smoker college Smoking Status Reviewed: 10/07/19 Patient is a former 1 year while in smoker college Exercise Exercises regularly Crossfit Type/Frequency Allergies, Adverse Reactions, Alerts Description No Known [...] daily Unknown 10% Solution to toe nails daily Claritin 1 by mouth every Unknown 10mg Capsules day prn Medications Administered in Office Medication SIG Qnty Indications Ordering Provider Date Triamcinolone (Kenalog) Sebastián Navarro MD 04/11/2019 Injection Immunizations CPT Code Status Date Vaccine Lot # 20625 Given 05/29/2017 Influenza Virus Vaccine, Quadrivalent, Split, Im Use 6-35mo 41969 Given 08/31/2016 Influenza Virus Vaccine, Quadrivalent, Split, Im Use 6-35mo 46782 Given 08/26/2014 Tdap - Tetanus/Diptheria/Acellular Pertussis Vital Signs Date Vital Result Comment 10/07/2019 2:05pm Height 68.75 inches 5'8.75" Weight 171.00 lb Heart Rate 52 /min BP Systolic 100 mmHg BP Diastolic 58 mmHg Respiratory Rate 16 /min Body Temperature 97.9 F BMI (Body Mass Index) 25.4 kg/m2 09/18/2019 4:03pm Height 68.75 inches 5'8.75" Weight 177.38 lb Heart Rate 54 /min BP Systolic 113 mmHg BP Diastolic 68 mmHg Body Temperature 96.9 F O2 % BldC Oximetry 98 % BMI (Body Mass Index) 26.4 kg/m2 Results Test Acquired Date Facility Test Result H/L Range Note CBC Auto 08/27/2019 [facility] White Blood 6.1 10^3/uL Normal 3.5-10.[address] [place] [address] [phone] Red Blood Count 3.89 10^6/uL Normal 3.70-4.87 [...] Cells % 0.0 Urine Culture And 08/12/2019 [facility] Urine Culture SEE RESULT [address] [place] [address] [phone] Ssa/SSB Abs Igg 08/12/2019 [facility] SS-A/Ro <0.2 U [address] [place] [address] [phone] SS-B/La Antibody <0.2 U 3 Maryanne Igg AB Reflex 08/12/2019 [facility] SS-A/Ro Antibody <0.2 U [address] [place] [address] [phone] SS-B/La Antibody <0.2 U 5 Sm (Cavazos) IgG Antibody 0.4 U 6 FILTRATION PLANT MECHANIC Antibody, IgG 3.8 U Abnormal 7 Scl-70 (Scleroderma) Antibody <0.2 U 8 Khushboo-1 Antibody <0.2 U 9 Laboratory test 08/12/2019 [facility] Rheumatoid < 10 IU/mL Normal <[address] [place] [address] [phone] Lupus 08/12/2019 [facility] Lupus See [address] [address] Tech Inter [phone] Prothrombin Time(Lac) 11.0 sec 9.4 - 12.5 Lac Inr 1.0 0.9-1.1 11 Lac Aptt 24 sec Abnormal 25 - 37 DRVVT Screen Ratio 0.88 ratio <1.20 12 Laboratory 08/12/2019 [facility] Hepatitis B Nonreactive Nonreactive test finding [address] [place] [address] [phone] Urinalysis 08/12/2019 [facility] Urine Color Yellow Profile [address] [place] [address] [phone] Urine Appearance Cloudy Urine Specific [place] 1.008 Low 1.010-1.030 Urine pH 6.0 Normal [...] Cell Present Abnormal Absent Laboratory test 08/12/2019 [facility] Complement C1Q 23 mg/dL Abnormal 12 - [address] 22 [place] [address] [phone] Complement C3 105 mg/dL 75 - 175 14 Complement C4 17 mg/dL 14 - 40 15 Cyclic Citrullinated Pep Igg <15.6 U 16 Direct Poonam NEGATIVE Rna Polymerase III Igg <10.0 U 17 Erythrocyte Sed Rate 29 mm/Hr Normal 0-29 Cardiolipin 08/12/2019 [facility] Phospholipid Ab 11.9 MPL 18 Igg/Igm [address] [facility] IgM, [place] [address] [phone] Phospholipid Ab IgG < 9.4 GPL 19 Laboratory test 08/12/2019 [facility] C Reactive 24.26 mg/L High <8.[address] [facility] [place] [address] [phone] Creatine Kinase(CK) 29 U/L Normal 10-223 Comp Metabolic 08/12/2019 [facility] Sodium 138 mmol/L Normal 135-145 Panel 101 [place] [address] [phone] Potassium 3.5 mmol/L Normal 3.5-5.0 Chloride 103 [...] Egfr 100.2 >60 20 CBC Auto 08/12/2019 [facility] White Blood 7.2 10^3/uL Normal 3.5-10.[address] [place] [address] [phone] Red Blood Count 3.84 10^6/uL Normal 3.70-4.87 [...] Blood Cells % 0.0 Laboratory test 08/12/2019 [facility] C1 Esterase 25 mg/dL 19 - 37 [address] [place] [address] [phone] C1 Esterase Inhibitor Function TNP () 22 Beta 2 Glycoprotein 08/12/2019 [facility] Beta 2 <9.4 U/mL 23 I Abs [address] [place] [address] [phone] Beta 2 Glycoprotein IgM <9.4 U/mL 24 Nuclear AB 08/12/2019 [facility] Nuclear Ab Positive >= Abnormal 25 (Ginger) By Ifa [address] (Ginger) by Ifa, 1:25 <[place] [address] IgG NOTE> [phone] Ginger Titer: >=1:2560 Ginger Pattern: Speckled 26 [...] [address]: Ezequiel Groves MD Acct: [id number] Unit: [id number] AGE: 53 Location: LAB Re08/12/19 SEX: F Status: REG REF SPEC: [id number] KARLA: 08/12/19-[address]: Ezequiel Groves MD REQ: [id number] RECD: 08/12/19 STATUS: COMP _ SOURCE: URINE SPDES: ORDERED: Urine Culture Procedure Result Reported Site Urine Culture Final 08/13/19- 1444 ML No growth of clinically significant organisms * ML - Main Lab . END OF REPORT DEPARTMENT OF PATHOLOGY, [address] [place] [address] Altaf Juarez M.D. Director SOWMYA # [id number] 2 REFERENCE VALUE <1.0 (Negative) 3 REFERENCE VALUE <1.0 (Negative) Test Performed by: [facility] [address] Line Up Examiner: Tay Daniels M.D. Ph.D.; CLIA# [id number] 4 REFERENCE VALUE <1.0 (Negative) 5 REFERENCE VALUE <1.0 (Negative) 6 REFERENCE VALUE <1.0 (Negative) 7 Interpretation: Positive (>=1.0) REFERENCE VALUE <1.0 (Negative) 8 REFERENCE VALUE <1.0 (Negative) 9 REFERENCE VALUE <1.0 (Negative) Test Performed by: [facility] - [address] [address] Line Up Examiner: Tay Daniels M.D. Ph.D.; CLIA# [id number] 10 No evidence of a lupus anticoagulant based on results of Prothrombin Time (PT), Activated Partial Thromboplastin Time (APTT), and Dilute Russells Viper Venom Time (DRVVT). Interpretation not reviewed by physician. 11 ADDITIONAL INFORMATION Standard intensity warfarin therapeutic range: 2.0 to 3.0 High intensity warfarin therapeutic range: 2.5 to 3.5 12 Test Performed by: [place] [id number] Line Up Examiner: Tay Daniels M.D. Ph.D.; CLIA# [id number] 13 ADDITIONAL INFORMATION This test was developed and its performance characteristics determined by [facility] in a manner consistent with CLIA requirements. This test has not been cleared or approved by the U.S. Food and Drug Administration. Test Performed by: [place] [address] Line Up Examiner: Tay Daniels M.D. Ph.D.; CLIA# [id number] 14 Test Performed by: [place] [address] Line Up Examiner: Tay Daniels M.D. Ph.D.; CLIA# [id number] 15 Test Performed by: [place] [address] Line Up Examiner: Tay Daniels M.D. Ph.D.; CLIA# [id number] 16 REFERENCE VALUE <20.0 (Negative) Test Performed by: [place] [address] Line Up Examiner: Tay Daniels M.D. Ph.D.; CLIA# [id number] 17 REFERENCE VALUE <20.0 (Negative) Test Performed by: [place] [address] Line Up Examiner: Tay Daniels M.D. Ph.D.; CLIA# [id number] 18 REFERENCE VALUE <15.0 (Negative) 19 REFERENCE VALUE <15.0 (Negative) Test Performed by: [place] [address] Line Up Examiner: Tay Daniels M.D. Ph.D.; CLIA# [id number] 20 Because ethnic data is not always [...] <15 (or dialysis) 21 Test Performed by: [place] [address] Line Up Examiner: Tay Daniels M.D. Ph.D.; CLIA# [id number] 22 C1 Esterase Inhib, Functional was cancelled on 08/14/2019 at 10:44; Specimen received refrigerated - must be sent frozen on dry ice. Test Performed by: [place] [address] Line Up Examiner: Tay Daniels M.D. Ph.D.; CLIA# [id number] 23 REFERENCE VALUE <15.0 (Negative) 24 REFERENCE VALUE <15.0 (Negative) Test Performed by: [facility] [employer] [address] [place] [address] Line Up Examiner: Tay Daniels M.D. Ph.D.; CLIA# [id number] 25 Positive >= 1:2560 REFERENCE VALUE <1:80 (Negative) 26 Test Performed by: [facility] [employer] [address] [place] [address] Line Up Examiner: Tay Daniels M.D. Ph.D.; CLIA# [id number] Procedures Date Code Description Status 09/09/2019 47116 Diffusing Capacity Completed 09/09/2019 34711 Plethysmography Determination Lung Volumes & Per Airway Completed Resist 09/09/2019 35583 Pulmonary Function><Bronchodil Completed 09/01/2019 05760 ECHO Transthoracic, Real-Time 2D With Doppler And Color Completed Flow 09/01/2019 57537 ECHO Transthoracic, Real-Time 2D With Doppler And Color Completed Flow 04/11/2019 42579 Inj/Aspir, Small Joint/Bursa W/ US Completed 08/23/2018 17691746 Mammogram Completed Medical Devices Description No Information Available Encounters Type Date Location Provider Dx Diagnosis Office Visit 09/18/2019 Rheumatology Ezequiel Groves, M06.4 Inflammatory 4:00p [facility] [place] [facility] MD polyarthropathy Ccmob I73.00 Raynaud's syndrome without gangrene Z79.899 Other moth exterminator (current) drug therapy Office Visit 09/15/2019 3:00p [facility] Anna Givens, I73.00 [facility] syndrome without gangrene R76.0 Raised antibody titer L40.0 Psoriasis vulgaris 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, lymph nodes of head, face, and neck R20.0 Anesthesia of skin Z00.00 Encntr for general adult medical exam w/o abnormal findings Office Visit 08/12/2019 2:00p Rheumatology Ezequiel R76.0 Raised antibody [facility] Groves MD titer Ccmob I73.00 Raynaud's syndrome without gangrene Office Visit 07/17/2019 9:10a [facility] Dermatology Maurice Rutledgezer, L82.1 Other seborrheic MD keratosis L81.4 Other melanin hyperpigmentation I78.1 Nevus, non-neoplastic Office Visit 04/11/2019 [facility] Ramon, M21.622 Bunionette of 10:00a Orthopedics at left foot [place] M65.872 Other synovitis and tenosynovitis, left ankle and foot Assessments Date Code Description Provider 10/07/2019 M06.4 Inflammatory polyarthropathy Anna Givens MD 10/07/2019 I73.00 Raynaud's syndrome without gangrene Anna Givens MD 09/18/2019 M06.4 Inflammatory polyarthropathy Ezequiel Groves MD 09/18/2019 I73.00 Raynaud's syndrome without gangrene Ezequiel Groves MD 09/18/2019 Z79.899 Other moth exterminator (current) drug therapy Ezequiel Groves MD 09/15/2019 I73.00 Raynaud's syndrome [...] Irving M.D. 09/01/2019 R76.0 Raised antibody titer [place] ECHO Schedule 09/01/2019 I73.00 Raynaud's syndrome without gangrene Kamille Irving M.D. 09/01/2019 I73.00 Raynaud's syndrome without gangrene [place] [facility] Schedule 09/01/2019 I35.1 Nonrheumatic aortic (valve) Kamille Irving M.D. insufficiency 09/01/2019 I35.1 Nonrheumatic aortic (valve) [place] [facility] Schedule insufficiency 08/12/2019 R76.0 Raised antibody [...] 4:00 pm - Anna [facility] MD at [facility]10/22/2019 4:00 pm - Ezequiel Groves MD at [facility] - [facility]10/07/2019 - Anna Givens, MDM06.4 Inflammatory polyarthropathyComments:reviewed all notes, and labsdoing well with cream, prednisone and plaquenil; ok to use cream as directed, monitor response, will f/ u with Dr Groves re; pred and plaq, f/u with ar cpe and prnI73.00 Raynaud's syndrome without gangrene Functional Status Description No Information Available Mental Status Description No Information Available Referrals Description No Information Available
[2019-10-10 10:53] VITALS: BP 126/69
[2019-10-10] MEDS ORDERED: NS 0.9% 1000 ML** 1,000 ML IV ONE (12:03)
--- NOTE | 2019-10-10 12:12 | UC ---
Dizzy HPI HPI Summary: PATIENT HAS HAD WORSENING DIZZINESS AND OVERALL MALAISE SINCE GIVING BLOOD SEVERAL DAYS AGO ON 10/06/2019. SHE GIVES BLOOD ON A REGULAR BASIS AND DOES NOT USUALLY HAVE THIS REACTION. SHE DENIES ANY NAUSEA, CHEST PAIN, SHORTNESS OF BREATH, FEVER OR SYNCOPE. DIZZINESS WORSENS WITH CHANGE IN POSITION AND HEAD MOVEMENTS. GETS BETTER BUT DOES NOT COMPLETELY RESOLVE WHEN LAYING STILL. IN THE PAST FEW MONTHS HAS BEEN WORKED UP FOR AN UNSPECIFIED RHEUMATOLOGIC CONDITION. ALSO HAS A HISTORY OF HYPOTHYROIDISM. TSH WAS RELATIVELY LOW AT 0.36 ON 06/25/19. - History Of Current Complaint Chief Complaint: UCDizziness Stated Complaint: LIGHTHEADED Time Seen by Provider: 10/10/19 11:13 Hx Obtained From: Patient Hx Last Menstrual Period: hysterectomy Onset/Duration: Gradual Onset, Lasting Days, Still Present Timing: Constant Severity Initially: Moderate Severity Currently: Moderate Pain Intensity: 0 Pain Scale Used: 0-10 Numeric Character: Lightheaded, Dizzy Aggravating Factor(s): Position Change, Change In Head Position Alleviating Factor(s): Rest, Lying Down Associated Signs And Symptoms: Negative: Nausea, Vomiting, Tinnitus, Chest Pain , SOB, Palpitations, Unsteady Gait, Visual Changes - Allergies/Home Medications Allergies/Adverse Reactions: Allergies Allergy/AdvReac Type Severity Reaction Status Date / Time No Known Allergies Allergy Verified 10/10/19 11:14 Home Medications: Home Medications Estradiol [Estrace] 1 mg PO 06/04/13 [History Confirmed 03/03/15] Levothyroxine TAB* [Synthroid TAB*] 125 mcg PO DAILY 06/04/13 [History Confirmed 10/10/19] Hydroxychloroquine TAB* [Plaquenil TAB*] 1 tab PO DAILY 10/10/19 [History Confirmed 10/10/19] predniSONE [Prednisone 5 MG TAB] 1 tab PO DAILY 10/10/19 [History Confirmed 01/23] PMH/Surg Hx/FS Hx/Imm Hx - Additional Past Medical History Additional PMH: UNSPECIFIED RHEUMATOLOGIC CONDITION Endocrine History: Hypothyroidism Respiratory History: Asthma - EXERCISE INDUCED - Surgical History Surgical History: Yes Surgery Procedure, Year, and Place: hysterectomy,t&a at age 10 - Family History Known Family History: Negative: Cardiac Disease - Social History Alcohol Use: Weekly Alcohol Amount: 1-2 glasses per week Substance Use Type: None Smoking Status (MU): Former Smoker When Did the Patient Quit Smoking/Using Tobacco: in college Review of Systems All Other Systems Reviewed And Are Negative: Yes Constitutional: Positive: Negative Respiratory: Positive: Negative Cardiovascular: Positive: Negative Gastrointestinal: Positive: Negative Neurological/Mental Status: Positive: Other - DIZZY. Negative: Headache, Weakness, Paresthesia Physical Exam Triage Information Reviewed: Yes Appearance: No Pain Distress, Well-Nourished Vital Signs: Initial Vital Signs Temp 98.2 F 10/10/19 10:50 Pulse 57 10/10/19 10:50 Resp 16 10/10/19 10:50 BP 126/69 10/10/19 10:50 Pulse Ox 100 10/10/19 10:50 Laboratory Tests 10/10/19 12:15 POC Urine Color Yellow POC Urine Clarity Clear POC Urine pH 7.0 POC Ur Specif [place] 1.010 POC Urine Protein Negative POC Ur Glucose (UA) Negative POC Urine Ketones Negative POC Urine Blood Negative POC Urine Nitrite Negative POC Urine Bilirubin Negative POC Urine Urobilinogen 0.2 POC U Leukocyte Esteras Negative Vital Signs Reviewed: Yes Eyes: Positive: Conjunctiva Clear ENT: Positive: Hearing grossly normal Neck: Positive: Supple, Nontender, No Lymphadenopathy Respiratory Exam: Normal Cardiovascular: Positive: Bradycardia Abdomen Description: Positive: Nontender, Soft Musculoskeletal: Positive: No Edema Neurological: Positive: Alert, Muscle Tone Normal Psychological: Positive: Age Appropriate Behavior Skin: Negative: Rashes Diagnostics - EKG Cardiac Rate: Bradycardia - 48BPM Cardiac Rhythm: Sinus: Normal Ectopy: None ST Segment: Normal Dizzy Course/Dx - Course Course Of Treatment: PATIENT ARRIVES WITH SEVERAL DAYS OF DIZZINESS AND OVERALL MALAISE SINCE GIVING BLOOD 5 DAYS AGO. OVER THE PAST COUPLE OF DAYS SYMPTOMS HAVE WORSENED. SHE HAS A HISTORY OF HYPOTHYROIDISM AND AN UNSPECIFIED RHEUMATOLOGIC CONDITION FOR WHICH SHE IS CURRENTLY BEING WORKED UP. STATES SHE EXERCISES REGULARLY AND STAYS WELL-HYDRATED. PATIENT REQUIRES A HIGHER LEVEL OF SERVICE THAN WHAT IS AVAILABLE IN THE URGENT CARE. TO THE [facility] BY AMBULANCE. - Differential Dx/Diagnosis Provider Diagnosis: Dizziness - Physician Notifications Discussed Patient Care With: Bertin Knox - TO [facility] BY AMBULANCE Time Discussed With Above Provider: 12:00 Instructed by Provider To: MD Will See In ED Discharge ED - Sign-Out/Discharge Documenting (check all that apply): Patient Departure All imaging exams completed and their final reports reviewed: No Studies - Discharge Plan Condition: Stable Disposition: TRANS HIGHER LVL OF CARE FAC Referrals: Anna Winn MD [Primary Care Provider] - - Billing Disposition and Condition Condition: STABLE Disposition: Trans Higher Lvl of Care Fac
== END 2019-10-10 12:20 | disposition short-term general hospital (02) ==
LOC: UCEAST 10:44
DX: R42 Dizziness and giddiness (principal); R00.1 Bradycardia, unspecified; J45.909 Unspecified asthma, uncomplicated; E03.9 Hypothyroidism, unspecified; Z87.891 Personal history of nicotine dependence; Z79.899 Other long term (current) drug therapy; Z79.52 Long term (current) use of systemic steroids; Z79.890 Hormone replacement therapy
CPT/HCPCS: 81003; 93005; 99213; G0463

== ENCOUNTER 2019-10-10 12:37 | Emergency (ER) | payer OTHER ==
[2019-10-10] MEDS ORDERED: NS 0.9% 1000 ML** 1,000 ML IV ONE (12:45)
--- NOTE | 2019-10-10 12:45 | ED ---
Complex/Multi-Sys Presentation - HPI Summary HPI Summary: 53 year old F presenting to [facility] with a chief complaint of lightheadedness and fatigue since 3 days ago. The patient rates the pain 0/10 in severity. Symptoms aggravated by nothing. Symptoms alleviated by nothing. Patient reports that she donated a pint of blood 4 days ago. Patient denies any headache, vision changes , nausea, vomiting, abdominal pain, dysuria, diarrhea, chest pain, shortness of breath, cough, fever, or pain or swelling in her legs. The patient states that she has an undiagnosed autoimmune disorder. Medication list reviewed. Allergy list reviewed. Home Medications Medication Instructions Recorded Confirmed Type Estradiol [Estrace] 1 mg PO 06/04/13 03/03/15 History Levothyroxine TAB* [Synthroid TAB*] 125 mcg PO DAILY 06/04/13 10/10/19 History Hydroxychloroquine TAB* [Plaquenil 1 tab PO DAILY 10/10/19 10/10/19 History TAB*] predniSONE [Prednisone 5 MG TAB] 1 tab PO DAILY 10/10/19 10/10/19 History - History Of Current Complaint Hx Obtained From: Patient Onset/Duration: Lasting Days, Still Present Timing: Constant Aggravating Factor(s): None Alleviating Factor(s): None Associated Signs And Symptoms: Positive: Other - Lightheadedness, fatigue - Allergies/Home Medications Allergies/Adverse Reactions: Allergies Allergy/AdvReac Type Severity Reaction Status Date / Time No Known Allergies Allergy Verified 10/10/19 11:14 Home Medications: Home Medications Levothyroxine TAB* [Synthroid TAB*] 125 mcg PO DAILY 06/04/13 [History Confirmed 10/10/19] Hydroxychloroquine TAB* [Plaquenil TAB*] 200 mg PO DAILY 10/10/19 [History Confirmed 10/10/19] estradioL [Estradiol] 1 mg PO DAILY 10/10/19 [History Confirmed 10/10/19] predniSONE [Prednisone 5 MG TAB] 5 mg PO DAILY 10/10/19 [History Confirmed 10/09] PMH/Surg Hx/FS Hx/Imm Hx Endocrine/Hematology History: Reports: Hx Thyroid Disease - hypothroidism Denies: Hx Diabetes Cardiovascular History: Denies: Hx Hypertension Respiratory History: Reports: Hx Asthma - excercise induced Denies: Hx Chronic Obstructive Pulmonary Disease (COPD) GI History: Denies: Hx Ulcer History: Denies: Hx Dialysis, Hx Renal Disease Musculoskeletal History: Denies: Hx Rheumatoid Arthritis, Hx Osteoporosis - Cancer History Hx Chemotherapy: No Hx Radiation Therapy: No - Surgical History Surgery Procedure, Year, and Place: hysterectomy,t&a at age 10 Infectious Disease History: Denies: Hx Clostridium Difficile, Hx Hepatitis, Hx Human Immunodeficiency Virus (HIV), Hx of Known/Suspected MRSA, Hx Shingles, Hx Tuberculosis, Hx Known/ Suspected VRE, Hx Known/Suspected VRSA, History Other Infectious Disease - Family History Known Family History: Negative: Cardiac Disease - Social History Alcohol Use: Weekly Alcohol Amount: 1-2 glasses per week Substance Use Type: Reports: None Smoking Status (MU): Former Smoker Review of Systems Positive: Fatigue. Negative: Fever Eyes: Negative - Vision changes Negative: Chest Pain Negative: Shortness Of Breath, Cough Negative: Abdominal Pain, Vomiting, Diarrhea, Nausea Negative: dysuria Musculoskeletal: Negative - Leg pain; leg swelling Neurological/Mental Status: Other - Lightheadedness Negative: Headache All Other Systems Reviewed And Are Negative: Yes Physical Exam - Summary Physical Exam Summary: Constitutional: Well-developed, Well-nourished, Alert. (-) Distressed Skin: Warm, Dry HENT: Normocephalic; Atraumatic Eyes: Conjunctiva normal Neck: Musculoskeletal ROM normal neck. (-) JVD, (-) Stridor, (-) Tracheal deviation Cardio: Rhythm regular, bradycardic, Heart sounds normal; Intact distal pulses; The pedal pulses are 2+ and symmetric. Radial pulses are 2+ and symmetric. (-) Murmur Pulmonary/Chest wall: Effort normal. (-) Respiratory distress, (-) Wheezes, (-) Rales Abd: Soft, (-) tenderness, (-) Distension, (-) Guarding, (-) Rebound Musculoskeletal: (-) Edema Lymph: (-) Cervical adenopathy Neuro: Alert, Oriented x3 Psych: Mood and affect Normal Triage Information Reviewed: Yes Vital Signs Reviewed: Yes Procedures - Sedation Patient Received Moderate/Deep Sedation with Procedure: No Diagnostics - Laboratory Result Diagrams: 10/10/19 14:21 10/10/19 14:20 Lab Statement: Any lab studies that have been ordered have been reviewed, and results considered in the medical decision making process. - EKG 1248 Cardiac Rate: Bradycardia - 50 BPM EKG Rhythm: Sinus Bradycardia Summary of EKG Findings: No ischemic changes. Dr. Sewell has reviewed and interpreted this EKG. Complex Multi-Symp Course/Dx Course Of Treatment: 53 year old F presenting to [facility] with a chief complaint of lightheadedness and fatigue since 3 days ago. Physical exam findings: bradycardic. An EKG reveals sinus bradycardia, rate of 50 BPM, no ischemic changes. Laboratory results with no significant abnormalities except for an Hgb of 11.9. In the ED course, the patient was given normal saline. Patient will be discharged with follow up from her PCP. The patient is agreeable with this plan. - Diagnoses Provider Diagnoses: Dizziness Discharge ED - Sign-Out/Discharge Documenting (check all that apply): Patient Departure - Discharge Plan Condition: Stable Disposition: HOME Patient Education Materials: Dizziness (ED) Referrals: Anna Winn MD [Primary Care Provider] - 10/13/19 Additional Instructions: Follow-up with your PCP on October 13, 2019. Return to the emergency department for changing or worsening symptoms. - Billing Disposition and Condition Condition: STABLE Disposition: Home - Attestation Statements Document Initiated by Samanthaibe: Yes Documenting Scribe: Shanika Abarca Provider For Whom Scribe is Documenting (Include Credential): Alfredo Sewell DO Scribe Attestation: Shanika Blair scribed for Alfredo Sewell DO on 10/10/19 at 1932. Scribe Documentation Reviewed: Yes Provider Attestation: The documentation as recorded by the Shanika davis accurately reflects the service I personally performed and the decisions made by Alfredo king DO Status of Scribe Document: Viewed
[2019-10-10 14:46] LABS: ABS Monocytes 0.3 10^3/ul (0-0.8); ABS Neutrophils 3.5 10^3/ul (1.5-7.7); Eosinophil % 0.3 %; Hematocrit 36 % (35-47); Hemoglobin 11.9 g/dL (12.0-16.0); Lymphocyte % 20.4 %; Mean Corpuscular HGB Conc 33 g/dL (31-36); Mean Corpuscular Hemoglobin 31 pg (27-31); Mean Corpuscular Volume 92 fL (80-97); Platelet Count 180 10^3/uL (150-450); Red Blood Count 3.89 10^6 /uL (3.70-4.87); Red Cell Distribution Width 14 % (10-15); White Blood Count 4.9 10^3/uL (3.5-10.8)
[2019-10-10 14:59] LABS: BUN/Creatinine Ratio 14.7 (8-20); Potassium 3.9 mmol/L (3.5-5.0)
[2019-10-10 15:00] LABS: Albumin 3.8 g/dL (3.2-5.2); Albumin/Globulin Ratio 1.5 (1-3); Calcium 8.9 mg/dL (8.6-10.3); EGFR African American 97.1 (>60); EGFR Non-African American 80.2 (>60); Globulin 2.6 g/dL (2-4); Total Bilirubin 0.3 mg/dL (0.2-1.0); Total Protein 6.4 g/dL (6.4-8.9)
[2019-10-10 15:36] LABS: TSH (Thyroid Stimulating Horm) 0.45 mcIU/mL (0.34-5.60)
[2019-10-10 15:48] VITALS: BP 119/61
== END 2019-10-10 15:47 | disposition home or self-care (01) ==
LOC: ED 12:37
DX: R42 Dizziness and giddiness (principal); R53.83 Other fatigue; E03.9 Hypothyroidism, unspecified; J45.909 Unspecified asthma, uncomplicated; Z79.899 Other long term (current) drug therapy; Z87.891 Personal history of nicotine dependence; R00.1 Bradycardia, unspecified
CPT/HCPCS: 36415; 80053; 84443; 84484; 85025; 93005; 96360; 99282